=== PATIENT | female | born 1975 | race Two or more races ===

== ENCOUNTER 2017-03-21 10:58 | Observation (INO) | payer MEDICAID ==
[~2017-03-21] VITALS: Ht 165.1 cm; Wt 74.8 kg
[~2017-03-21 10:58] MED LIST: ALPR1TAB2 PO
[2017-03-21 11:48] LABS: Basophils # (auto) 0.1 uL; Basophils % (auto) 0.5 % (0.0-2.0); Eosinophils # (auto) 0 uL; Hematocrit 39.3 % (36.0-46.0); Hemoglobin 12.5 g/dL (12.2-16.2); Lymphocytes # (auto) 1.2 uL; Lymphocytes % (auto) 10.8 % (10.0-50.0); Mean Corpuscular Hemoglobin 28.1 pg (28.0-32.0); Mean Corpuscular Hgb Conc. 31.9 g/dL (32.0-36.0); Monocytes # (auto) 0.3 uL; Neutrophils # (auto) 9.5 uL; Neutrophils % (auto) 85.7 % (37.0-80.0); Nucleated Red Blood Cells % 0.1 %; Platelet Count (auto) 439 10^3/uL (140-450); Red Blood Cells 4.47 10^6/uL (4.0-5.20)
[2017-03-21] MEDS ORDERED: ONDANSETRON HCL 4 MG/2 ML VIAL IV ONE (13:15)
[2017-03-21 13:21] LABS: Albumin 3.9 g/dL (3.4-5.0); BUN/Creatinine Ratio 7.9; Bilirubin, Total 0.4 mg/dL (0.2-1.0); Potassium 3.9 mmol/L (3.5-5.1); Total Protein 8.6 g/dL (6.4-8.2)
[2017-03-21] MEDS ORDERED: SODIUM CHLORIDE 0.9% 1,000 ML IVB ONE (13:21)
[2017-03-21 13:38] LABS: Magnesium 2.2 mg/dL (1.6-2.6)
[2017-03-21 13:51] LABS: INR 0.96 (0.9-1.15); Partial Thromboplastin Time 24.5 sec (22.64-33.71); Prothrombin Time 10.5 sec (9.37-12.3)
[2017-03-21 14:19] VITALS: BP 119/51
[2017-03-21] MEDS ORDERED: KETOROLAC TROMETH 30 MG/ML 1ML VIAL ONE (16:41)
[2017-03-21 16:47] LABS: Urine Bacteria NONE SEEN /hpf (None Seen); Urine Blood TRACE /uL (Negative); Urine Mucus FEW (None Seen); Urine Specific Gravity 1.022 (1.001-1.035); Urine WBC 3 /hpf (0 - 5)
[2017-03-21] MEDS ORDERED: KETOROLAC TROMETH 30 MG/ML 1ML VIAL IV ONE (17:00)
== END 2017-03-21 17:11 | disposition home or self-care (01) | DRG 249 ==
LOC: ER 10:58 → EDBD 10:58 → OVERFLOW 13:22 → ER 17:11
PROVIDERS: ADMIT Family Medicine; ATTEND Family Medicine
DX: K52.9 Noninfective gastroenteritis and colitis, unspecified (principal); N39.0 Urinary tract infection, site not specified; E78.5 Hyperlipidemia, unspecified; F32.9 Major depressive disorder, single episode, unspecified; F41.9 Anxiety disorder, unspecified; Z88.0 Allergy status to penicillin; Z90.49 Acquired absence of other specified parts of digestive tract
CPT/HCPCS: 36415; 74176; 80053; 81001; 82150; 83690; 83735; 85025; 85610; 85730; 96361; 96374; 96375; 99285; G0378; J1885; J2405; J7030

== ENCOUNTER 2021-08-01 08:13 | Emergency (ER) | payer MEDICAID ==
[~2021-08-01] VITALS: Ht 165.1 cm; Wt 62.6 kg
[2021-08-01 09:10] VITALS: BP 134/65
[2021-08-01] MEDS ORDERED: ALPRAZolam 0.5 MG TAB PO ONE (09:45)
[2021-08-01] MEDS ORDERED: HYDR50CA PO (10:43)
== END 2021-08-01 10:59 | disposition home or self-care (01) ==
LOC: ER 08:13
DX: F41.0 Panic disorder [episodic paroxysmal anxiety] (principal); E78.5 Hyperlipidemia, unspecified; Z90.49 Acquired absence of other specified parts of digestive tract; Z79.899 Other long term (current) drug therapy; Z88.0 Allergy status to penicillin

== ENCOUNTER 2021-09-02 12:01 | Emergency (ER) | payer MEDICAID ==
[~2021-09-02] VITALS: Ht 165.1 cm; Wt 141.0 kg
[~2021-09-02 12:01] MED LIST changes: +HYDR50CA PO
[2021-09-02] MEDS ORDERED: ALPRAZolam 0.5 MG TAB PO ONE (13:30)
[2021-09-02] MEDS ORDERED: HYDR50CA PO (14:13)
[2021-09-02 14:23] VITALS: BP 124/54
== END 2021-09-02 14:34 | disposition home or self-care (01) ==
LOC: ER 12:01
DX: F41.1 Generalized anxiety disorder (principal); F32.9 Major depressive disorder, single episode, unspecified; E78.5 Hyperlipidemia, unspecified; Z90.49 Acquired absence of other specified parts of digestive tract; Z88.0 Allergy status to penicillin